=== PATIENT | male | born 1975 | race Hispanic/Latino ===

== ENCOUNTER 2018-04-08 20:34 | Emergency (ER) | payer BC ==
[2018-04-08] MEDS ORDERED: KETOROLAC 30 MG/ML INJ ONE (21:40)
[2018-04-08] MEDS ORDERED: NA CHLORIDE 0.9% 1,000 ML ONE (21:41)
[2018-04-08 21:44] LABS: Absolute Lymphocytes (CBC) 2.9 K/uL (0.7-4.9); Absolute Monocytes 0.7 K/uL (0.1-1.3); Absolute Neutrophil 4.1 K/uL (1.8-8.0); Basophils % 0.6 % (0-1.3); Eosinophils % 0.9 % (0-4.4); Hematocrit 43.6 % (39.6-49.0); Lymphocytes % 37.1 % (15.3-44.8); MPV 9.3 fL (7.6-11.3); Monocytes % 9.4 % (3.3-12.3); RBC Red Blood Cell Count 5.01 M/uL (4.33-5.43)
[2018-04-08 21:58] LABS: ALT/SGPT 59 U/L (12-78); AST/SGOT 20 U/L (15-37); Albumin 3.6 g/dL (3.4-5.0); Alkaline Phosphatase 93 U/L (45-117); BUN Blood Urea Nitrogen 20 mg/dL (7-18); Bicarbonate 27 mmol/L (21-32); Bilirubin Direct < 0.1 mg/dL (0-0.2); Bilirubin Total 0.2 mg/dL (0.2-1.0); Glucose Level 105 mg/dL (74-106); Lipase 365 U/L (73-393); Potassium 3.8 mmol/L (3.5-5.1); Protein, Total 7.3 g/dL (6.4-8.2); Sodium Level 142 mmol/L (136-145)
[2018-04-08 22:47] LABS: Urine Blood NEGATIVE (NEG); Urine Glucose NEGATIVE (NEG); Urine Protein NEGATIVE (NEG); Urine Specific Gravity 1.025 (1.005-1.030)
--- NOTE | 2018-04-09 00:28 | ER ---
Nurse's Notes [facility] Name: Slava Zapata Age: 42 yrs Sex: Male : 1975 Arrival Date: 04/08/2018 Time: 20:36 Bed 8 Private MD: VINAYAK CURIEL Diagnosis: Unspecified abdominal pain Presentation: 04/08 20:38 Presenting complaint: Patient states: "For the past week I've been having a pain in my aj1 upper right back, then this morning around 8 the pain moved around to my side, its worse than it was before and it hurts when I breathe." Reports nausea Reports right upper back pain, RUQ pain. Denies V/D. Transition of care: patient was not received from another setting of care. Onset of symptoms was April 08, 2018 at 08:00. Risk Assessment: Do you want to hurt yourself or someone else? Patient reports no desire to harm self or others. Initial Sepsis Screen: Does the patient meet any 2 criteria? No. Patient's initial sepsis screen is negative. Does the patient have a suspected source of infection? No. Patient's initial sepsis screen is negative. Care prior to arrival: None. 20:38 Method Of Arrival: Ambulatory aj1 20:38 Acuity: AIDEN 3 aj1 Triage Assessment: 20:41 General: Appears in no apparent distress. comfortable, Behavior is calm, cooperative, aj1 appropriate for age. Pain: Complains of pain in right subscapular area and right upper quadrant Pain currently is 4 out of 10 on a pain scale. at worst was 8 out of 10 on a pain scale. Neuro: Level of Consciousness is awake, alert, obeys commands. Cardiovascular: Patient's skin is warm and dry. Respiratory: Airway is patent Respiratory effort is even, unlabored, Respiratory pattern is regular, symmetrical. Historical: - Allergies: 20:41 No Known Allergies; aj1 - Home Meds: 20:41 Celexa Oral [Active]; Promethazine Oral [Active]; aj1 - PMHx: 20:41 GERD; Hyperlipidemia; Pneumonia; Ulcers; aj1 - Immunization history:: Flu vaccine is not up to date. - Social history:: Smoking status: Patient uses tobacco products, denies chronic smoking, but will smoke occasionally. - Ebola Screening: : Patient denies travel to an Ebola-affected area in the 21 days before illness onset. Screenin:05 Abuse screen: Denies threats or abuse. Nutritional screening: No deficits noted. tl2 Tuberculosis screening: No symptoms or risk factors identified. Fall Risk None identified. Assessment: 21:10 General: Appears in no apparent distress. uncomfortable, Behavior is calm, cooperative, tl2 appropriate for age. Pain: Complains of pain in right upper quadrant and right subscapular area Pain radiates to right upper quadrant. Neuro: Level of Consciousness is awake, alert, obeys commands, Oriented to person, place, time, situation. Cardiovascular: Denies chest pain. Respiratory: Airway is patent Respiratory effort is even, unlabored, Respiratory pattern is regular, symmetrical. GI: Reports nausea. Derm: Skin is pink, warm \\T\\ dry. 22:00 Reassessment: Patient appears in no apparent distress at this time. Patient and/or tl2 family updated on plan of care and expected duration. Pain level reassessed. Patient is alert, oriented x 3, equal unlabored respirations, skin warm/dry/pink. US at bedside. 23:05 Reassessment: Patient appears in no apparent distress at this time. Patient and/or tl2 family updated on plan of care and expected duration. Pain level reassessed. Patient is alert, oriented x 3, equal unlabored respirations, skin warm/dry/pink. awaiting results. Vital Signs: 20:41 BP 134 / 85; Pulse 90; Resp 18; Temp 97.2; Pulse Ox 97% on R/A; Weight 108.86 kg (R); aj1 Height 5 ft. 9 in. (175.26 cm) (R); Pain 4/10; 23:03 BP 101 / 68; Pulse 73; Resp 18; Pulse Ox 96% on R/A; tl2 04/09 00:39 BP 122 / 71; Pulse 78; Resp 17; Temp 97.6; Pulse Ox 98% ; Pain 0/10; tl1 04/08 20:41 Body Mass Index 35.44 (108.86 kg, 175.26 cm) [facility] ED Course: 04/08 20:36 Patient arrived in ED. am2 20:37 VINAYAK CURIEL is Private Physician. am2 20:41 Triage completed. aj1 20:41 Arm band placed on Patient placed in waiting room, Patient notified of wait time. aj1 21:07 Tarik Duque NP is PHCP. pm1 21:07 Clarence Cristina MD is Attending Physician. pm1 21:10 Inserted saline lock: 20 gauge in right antecubital area, using aseptic technique. mt Blood collected. 21:59 Ultrasound completed. Patient tolerated well. sg3 22:01 US Abdomen Limited In Process Unspecified. EDMS 23:05 Patient has correct armband on for positive identification. Placed in gown. Bed in low tl2 position. Call light in reach. Side rails up X 1. Adult w/ patient. 23:17 Patient moved to VT via wheelchair. kw1 23:44 Stone Protocol In Process Unspecified. EDMS 23:58 Patient moved back from VT. kw1 04/09 00:36 IV discontinued, intact, bleeding controlled, No redness/swelling at site. Pressure tl1 dressing applied. 00:37 No provider procedures requiring assistance completed. tl1 Administered Medications: 02 21:37 Drug: TORadol 30 mg Route: IVP; Infused Over: 2 mins; Site: right antecubital; tl1 04/09 00:37 Follow up: Response: No adverse reaction; Marked relief of symptoms; Pain is decreased tl1 02 21:37 Drug: NS 0.9% 1000 ml Route: IV; Rate: 1000 ml; Site: right antecubital; tl1 23:45 Follow up: IV Status: Completed infusion tl1 Outcome: 04/09 00:27 Discharge ordered by . pm1 00:36 Discharged to home ambulatory, with family. tl1 00:36 Condition: good 00:36 Discharge instructions given to patient, family, Instructed on discharge instructions, follow up and referral plans. medication usage, Demonstrated understanding of instructions, follow-up care, medications, Prescriptions given X 1. 00:39 Patient left the ED. tl1 Signatures: Dispatcher [employer] EDMS Nuvia Falcon RN RN aj1 Shanta Tucker RN RN tl1 Tarik Duque NP [employer] COUNTER ATTENDANT pm1 Theresa Hendrix RN RN tl2 Melisa Aguilar Moriah nm Sadia Isbell kw1 Dayan Bailey sg3
--- NOTE | 2018-04-09 00:29 | EDPHYS ---
Physician Documentation [facility] Name: Slava Zapata Age: 42 yrs Sex: Male : 1975 Arrival Date: 04/08/2018 Time: 20:36 Bed 8 Private MD: VINAYAK CURIEL ED Physician Clarence Cristina HPI: 04/09 00:24 This 42 yrs old Male presents to ER via Ambulatory with complaints of Flank pm1 Pain. 00:24 The patient complains of pain in the right mid back. The pain radiates to the right pm1 upper quadrant. Onset: The symptoms/episode began/occurred 1 week(s) ago. Modifying factors: The symptoms are alleviated by nothing. the symptoms are aggravated by movement. Associated signs and symptoms: Pertinent negatives: diarrhea, dysuria, fever, nausea, vomiting. Severity of pain: in the emergency department the pain is actually worse. The patient has not experienced similar symptoms in the past. The patient has not recently seen a physician. Historical: - Allergies: 04/08 20:41 No Known Allergies; aj1 - Home Meds: 20:41 Celexa Oral [Active]; Promethazine Oral [Active]; aj1 - PMHx: 20:41 GERD; Hyperlipidemia; Pneumonia; Ulcers; aj1 - Immunization history:: Flu vaccine is not up to date. - Social history:: Smoking status: Patient uses tobacco products, denies chronic smoking, but will smoke occasionally. - Ebola Screening: : Patient denies travel to an Ebola-affected area in the 21 days before illness onset. ROS: 04/09 00:24 Constitutional: Negative for fever, chills, and weight loss, Eyes: Negative for injury, pm1 pain, redness, and discharge, ENT: Negative for injury, pain, and discharge, Neck: Negative for injury, pain, and swelling, Cardiovascular: Negative for chest pain, palpitations, and edema, Respiratory: Negative for shortness of breath, cough, wheezing, and pleuritic chest pain. : Negative for injury, bleeding, discharge, and swelling, MS/Extremity: Negative for injury and deformity, Skin: Negative for injury, rash, and discoloration, Neuro: Negative for headache, weakness, numbness, tingling, and seizure. Abdomen/GI: Positive for abdominal pain, of the right upper quadrant, Negative for nausea, vomiting, and diarrhea. Back: Positive for of the right mid back, Pain. Exam: 00:24 Constitutional: This is a well developed, well nourished patient who is awake, alert, pm1 and in no acute distress. Head/Face: Normocephalic, atraumatic. Eyes: Pupils equal round and reactive to light, extra-ocular motions intact. Lids and lashes normal. Conjunctiva and sclera are non-icteric and not injected. Cornea within normal limits. Periorbital areas with no swelling, redness, or edema. ENT: Nares patent. No nasal discharge, no septal abnormalities noted. Tympanic membranes are normal and external auditory canals are clear. Oropharynx with no redness, swelling, or masses, exudates, or evidence of obstruction, uvula midline. Mucous membranes moist. Neck: Trachea midline, no thyromegaly or masses palpated, and no cervical lymphadenopathy. Supple, full range of motion without nuchal rigidity, or vertebral point tenderness. No Meningismus. Chest/axilla: Normal chest wall appearance and motion. Nontender with no deformity. No lesions are appreciated. Cardiovascular: Regular rate and rhythm with a normal S1 and S2. No gallops, murmurs, or rubs. Normal PMI, no JVD. No pulse deficits. Respiratory: Lungs have equal breath sounds bilaterally, clear to auscultation and percussion. No rales, rhonchi or wheezes noted. No increased work of breathing, no retractions or nasal flaring. Back: No spinal tenderness. No costovertebral tenderness. Full range of motion. 00:24 Skin: Warm, dry with normal turgor. Normal color with no rashes, no lesions, and no evidence of cellulitis. MS/ Extremity: Pulses equal, no cyanosis. Neurovascular intact. Full, normal range of motion. 00:24 Abdomen/GI: Inspection: abdomen appears normal, Bowel sounds: normal, Palpation: soft, in all quadrants, mild abdominal tenderness, in the right upper quadrant, mass, is not appreciated, rebound tenderness, is not appreciated. 00:24 Neuro: Orientation: is normal, Motor: is normal, moves all fours, Gait: is steady, at a normal pace, without difficulty. Vital Signs: 04/08 20:41 BP 134 / 85; Pulse 90; Resp 18; Temp 97.2; Pulse Ox 97% on R/A; Weight 108.86 kg (R); aj1 Height 5 ft. 9 in. (175.26 cm) (R); Pain 4/10; 23:03 BP 101 / 68; Pulse 73; Resp 18; Pulse Ox 96% on R/A; tl2 04/09 00:39 BP 122 / 71; Pulse 78; Resp 17; Temp 97.6; Pulse Ox 98% ; Pain 0/10; tl1 04/08 20:41 Body Mass Index 35.44 (108.86 kg, 175.26 cm) aj1 MDM: 04/08 21:07 Patient medically screened. pm1 04/09 00:26 Data reviewed: vital signs. Data interpreted: Pulse oximetry: on room air is 96 %. pm1 Interpretation: normal. Counseling: I had a detailed discussion with the patient and/or guardian regarding: the historical points, exam findings, and any diagnostic results supporting the discharge/admit diagnosis, lab results, radiology results, the need for outpatient follow up, to return to the emergency department if symptoms worsen or persist or if there are any questions or concerns that arise at home. 04/08 21:28 Order name: Basic Metabolic Panel; Complete Time: 22:02 pm1 04/08 21:28 Order name: CBC with Diff; Complete Time: 22:02 pm1 04/08 21:28 Order name: Creatinine for Radiology; Complete Time: 22:03 pm1 04/08 21:28 Order name: Hepatic Function; Complete Time: 22:02 pm1 04/08 21:28 Order name: Lipase; Complete Time: 22:02 pm1 04/08 22:42 Order name: Urine Dipstick--Ancillary (enter results); Complete Time: 22:52 2 04/08 21:28 Order name: IV Saline Lock; Complete Time: 21:43 pm1 04/08 21:28 Order name: Labs collected and sent; Complete Time: 21:43 pm1 04/08 21:28 Order name: US Abdomen Limited pm1 04/08 21:28 Order name: Urine Dipstick-Ancillary (obtain specimen); Complete Time: 22:33 pm1 04/08 23:04 Order name: Stone Protocol EDMS Administered Medications: 04/08 21:37 Drug: TORadol 30 mg Route: IVP; Infused Over: 2 mins; Site: right antecubital; tl1 04/09 00:37 Follow up: Response: No adverse reaction; Marked relief of symptoms; Pain is decreased tl1 04/08 21:37 Drug: NS 0.9% 1000 ml Route: IV; Rate: 1000 ml; Site: right antecubital; tl1 23:45 Follow up: IV Status: Completed infusion tl1 Disposition: 04/09/18 00:27 Discharged to Home. Impression: Unspecified abdominal pain. - Condition is Stable. - Discharge Instructions: Abdominal Pain, Adult, Flank Pain, Adult. - Prescriptions for Bentyl 20 mg Oral Tablet - take 1 tablet by ORAL route every 6 hours As needed; 20 tablet. - Medication Reconciliation Form, Thank You Letter, Antibiotic Education, Prescription Opioid Use form. - Follow up: Emergency Department; When: As needed; Reason: Worsening of condition. Follow up: Private Physician; When: 2 - 3 days; Reason: Recheck today's complaints, Continuance of care, Re-evaluation by your physician. - Problem is new. - Symptoms have improved. Addendum: 04/11/2018 09:10 Co-signature as Attending Physician, Clarence Cristina MD I agree with the assessment and c luna plan of care. Signatures: Dispatcher [employer] [facility] Nuvia Falcon RN RN aj1 Clarence Cristina MD MD cha Lasagna, Tonya, RN RN tl1 Tarik Duque, JOE KILN PULLER pm1 Corrections: (The following items were deleted from the chart) 04/08 23:04 22:54 Abdomen Pelvis W Con+CT.[id number].[id number] ordered. [facility] 04/09 00:39 00:27 04/09/2018 00:27 Discharged to Home. Impression: Unspecified abdominal pain. tl1 Condition is Stable. Forms are Medication Reconciliation Form, Thank You Letter, Antibiotic Education, Prescription Opioid Use. Follow up: Emergency Department; When: As needed; Reason: Worsening of condition. Follow up: Private Physician; When: 2 - 3 days; Reason: Recheck today's complaints, Continuance of care, Re-evaluation by your physician. Problem is new. Symptoms have improved. pm1
--- NOTE | 2018-04-09 07:40 | RAD REPORT ---
EXAM DESCRIPTION: US - Abdomen Exam Limited - 04/08/2018 10:01 pm CLINICAL HISTORY: Right upper quadrant pain COMPARISON: None. FINDINGS: No gallstones, sludge or other abnormalities within the gallbladder lumen. Gallbladder is contracted limiting optimal assessment. Gallbladder wall is accentuated by the contracted state. Path ologic wall thickening not suspected. No pericholecystic fluid. No common duct stone or biliary tree dilatation identified. IMPRESSION: Limited study due to contracted state of the gallbladder. No stones or acute gallbladder process suspected. No biliary tree abnormality.
--- NOTE | 2018-04-11 09:48 | RAD REPORT ---
EXAM DESCRIPTION: CT - Stone Protocol CLINICAL HISTORY: Flank pain. COMPARISON: 04/20/2017 TECHNIQUE: CT scan of the abdomen and pelvis without intravenous contrast. This exam was performed according to our departmental dose-optimization program, which includes automated exposure control, adjustment of the mA and/or kV according to patient size and/or less of iterative reconstruction technique. FINDINGS: The lung bases are clear. No pleural or pericardial effusions. There is no hiatal hernia. There is mild hepatic steatosis. The gallbladder is contracted, limited evaluation. The spleen, pancr eas, adrenal glands, and kidneys are unremarkable. No obstructing urinary stones are seen. Query infl ammatory stranding surrounding the urinary bladder. The prostate gland and seminal vesicles are unrem arkable. No small bowel obstruction. The appendix is normal. There are scattered colonic diverticula without s urrounding inflammatory changes. No intraperitoneal free fluid or free air is seen. The aorta is normal in caliber. No acute osseous findings are appreciated. There is a small right fat -containing inguinal hernia. IMPRESSION: 1. Query mild inflammatory changes surrounding the urinary bladder; correlate with urina lysis to exclude UTI. 2. No urinary stone or hydronephrosis. Electronically signed by: Rodrigo Murillo MD 04/08/2018 11:53 PM PADDER Due to temporary technical issues with the PACS/Fluency reporting system, reports are being signed by the in house radiologist as a courtesy to ensure prompt reporting. The interpreting radiologist is f ully responsible for the content of the report.
== END 2018-04-09 00:39 | disposition home or self-care (01) ==
LOC: ER 20:34
DX: R10.11 Right upper quadrant pain (principal); K21.9 Gastro-esophageal reflux disease without esophagitis; E78.5 Hyperlipidemia, unspecified; J18.9 Pneumonia, unspecified organism; Z72.0 Tobacco use
CPT/HCPCS: 36415; 74176; 76377; 76705; 80048; 80076; 81003; 83690; 85025; 96361; 96374; 99284; J7030